=== PATIENT | female | born 1990 | race American Indian/Alaskan Native ===

== ENCOUNTER 2016-12-24 11:39 | Outpatient (CLI) | payer MEDICAID ==
[2016-12-24 13:25] LABS: Basophils % (Auto) 0.2 % (0.0-1.8); Eosinophils % (Auto) 0.1 % (0.0-4.3); Hematocrit 30.1 % (30.3-42.9); Hemoglobin 9.4 gm/dl (10.1-14.3); Mean Corpuscular HGB Conc 31 % (30-34); Mean Corpuscular Volume 77 fl (79-97); Platelet Count 129 K/mm3 (140-440); Red Blood Count 3.94 M/mm3 (3.65-5.03); Red Cell Distribution Width 16.1 % (13.2-15.2); White Blood Count 2.7 K/mm3 (4.5-11.0)
[2016-12-24 13:32] LABS: Mean Corpuscular Hemoglobin 24 pg (28-32)
[2016-12-24 13:40] LABS: Bilirubin,Urine NEG (Negative)
[2016-12-24 13:41] LABS: Bacteria,Urine 1+ /HPF (Negative); Blood,Urine NEG (Negative); Ketones,Urine NEG (Negative); Leukocyte Esterase,Urine TR (Negative); Mucus,Urine FEW /HPF; Nitrite,Urine NEG (Negative); Protein,Urine <15 mg/dL mg/dL (Negative)
[2016-12-24 13:46] LABS: Alanine Aminotransferase 7 units/L (7-56); Lactate Dehydrogenase 203 units/L (91-180)
[2016-12-24] MEDS ORDERED: TYLENOL PO ONE (13:57)
[2016-12-24 15:34] VITALS: BP 142/82
--- NOTE | 2016-12-25 08:17 | Ultrasound Report ---
BIOPHYSICAL PROFILE: INDICATION: BPP. COMPARISON: None similar at this institution. TECHNIQUE: Transabdominal ultrasound with Doppler interrogation. 2 - breathing movements 2 - movements 2 - posture and tone 2 - Qualitative amniotic fluid volume 8 - TOTAL SCORE OF POSSIBLE 8 Heart Rate (bpm) 129
== END 2016-12-24 15:59 | disposition home or self-care (01) ==
LOC: TRG 11:39
PROVIDERS: ATTEND Obstetrics & Gynecology Gynecology
DX: O16.3 Unspecified maternal hypertension, third trimester (principal); O47.1 False labor at or after 37 completed weeks of gestation; Z3A.38 38 weeks gestation of pregnancy
CPT/HCPCS: 36415; 59025; 76819; 81001; 82565; 83615; 84450; 84460; 84550; 85025